=== PATIENT | female | born 1970 | race Hispanic/Latino ===

== ENCOUNTER 2022-06-19 00:14 | Emergency (ER) | payer OTHER ==
[~2022-06-19] VITALS: Ht 157.5 cm; Wt 56.7 kg
[2022-06-19 00:14] VITALS: TEMP 97.7
[2022-06-19 01:11] LABS: PLATELET COUNT 272 K/uL (152-353)
[2022-06-19 01:19] LABS: POTASSIUM 3.1 mmol/L (3.6-5.2); SODIUM 141 mmol/L (136-145)
[2022-06-19 01:24] LABS: PARTIAL THROMBOPLASTIN TIME 24.6 SECONDS (24.5-33.6)
[2022-06-19 03:30] VITALS: BP 120/65
== END 2022-06-19 03:30 | disposition short-term general hospital (02) ==
LOC: ED 00:26
PROVIDERS: Family Medicine
DX: R07.89 Other chest pain (principal); R51.9 Headache, unspecified; I95.89 Other hypotension; R00.1 Bradycardia, unspecified; U07.1 COVID-19
CPT/HCPCS: 36415; 80053; 82550; 84484; 85027; 85379; 85610; 85730; 87635; 93005; 96360; 96365; 96375; 99284; J2270; J2405; U0003

== ENCOUNTER 2022-07-20 10:00 | Outpatient (CLI) | payer OTHER | END 2022-07-20 19:12 | disposition home or self-care (01) | LOC: CT 10:00 | PROVIDERS: ATTEND Internal Medicine | DX: Z13.6 Encounter for screening for cardiovascular disorders (principal) ==

== ENCOUNTER 2022-07-24 09:21 | Outpatient (CLI) | payer OTHER | END 2022-07-24 20:03 | disposition home or self-care (01) | LOC: US 09:21 | PROVIDERS: ATTEND Internal Medicine | DX: R79.89 Other specified abnormal findings of blood chemistry (principal) ==